=== PATIENT | female | born 1980 | race Caucasian/White ===

== ENCOUNTER 2019-12-27 07:40 | Emergency (ER) | payer OTHER ==
[~2019-12-27] VITALS: Ht 170.2 cm; Wt 90.3 kg
[2019-12-27] MEDS ORDERED: PRENATABS RX T1 EACH PO (07:49)
[2019-12-27] MEDS ORDERED: FOLIC ACID1 MG PO (07:50)
== END 2019-12-27 11:49 | disposition home or self-care (01) ==
LOC: ER 07:40
DX: O20.0 Threatened abortion (principal); O20.8 Other hemorrhage in early pregnancy; Z3A.09 9 weeks gestation of pregnancy

== ENCOUNTER 2020-05-05 12:29 | Inpatient (IN) | payer OTHER ==
[~2020-05-05] VITALS: Ht 170.2 cm; Wt 1.4 kg
[~2020-05-05 12:29] MED LIST changes: -ADULT LOW DOSE81 M1 PO; -B-12 PO
[2020-05-05] MEDS ORDERED: ADULT LOW DOSE81 M1 PO (14:24)
[2020-05-05] MEDS ORDERED: B-12 PO (14:25)
== END 2020-05-31 18:06 | DRG 786 ==
LOC: OB/GYN 12:29 → LDR 12:29 → OB/GYN 05-07 09:48
PROVIDERS: ADMIT Specialist; ATTEND Specialist
PROC: 4A1HXCZ Monitoring of Products of Conception, Cardiac Rate, External Approach (ICD-10-PCS; 2020-05-05)
PROC: BY4FZZZ Ultrasonography of Third Trimester, Single Fetus (ICD-10-PCS; 2020-05-10)
PROC: BY4FZZZ Ultrasonography of Third Trimester, Single Fetus (ICD-10-PCS; 2020-05-19)
PROC: 10D00Z1 Extraction of Products of Conception, Low, Open Approach (ICD-10-PCS; principal; 2020-05-28 21:00)
DX: O76 Abnormality in fetal heart rate and rhythm complicating labor and delivery (principal); O60.14X0 Preterm labor third trimester with preterm delivery third trimester, not applicable or unspecified; O24.313 Unspecified pre-existing diabetes mellitus in pregnancy, third trimester; O10.013 Pre-existing essential hypertension complicating pregnancy, third trimester; O26.873 Cervical shortening, third trimester; O26.843 Uterine size-date discrepancy, third trimester; O36.8130 Decreased fetal movements, third trimester, not applicable or unspecified; Z20.828 Contact with and (suspected) exposure to other viral communicable diseases; Z3A.31 31 weeks gestation of pregnancy; Z37.0 Single live birth

== ENCOUNTER → 2020-05-05 | Outpatient (CLI) | payer OTHER ==
[~2020-05-05] MED LIST: ADULT LOW DOSE81 M1 PO; B-12 PO; FOLIC ACID1 MG PO; PRENATABS RX T1 EACH PO
== END | disposition home or self-care (01) ==
LOC: PRENATAL 11:20
PROVIDERS: ATTEND Obstetrics & Gynecology Maternal & Fetal Medicine
DX: O26.843 Uterine size-date discrepancy, third trimester (principal); O60.03 Preterm labor without delivery, third trimester; O26.873 Cervical shortening, third trimester; Z36.89 Encounter for other specified antenatal screening; Z3A.28 28 weeks gestation of pregnancy